=== PATIENT | female | born 1975 | race Caucasian/White ===

== ENCOUNTER 2020-01-19 19:55 | Inpatient (IN) | payer OTHER ==
[~2020-01-19] VITALS: Ht 162.6 cm; Wt 123.8 kg
--- NOTE | ~2020-01-19 | EMS ---
[place] [id number] EMS Patient Care Report Name: KYAW HOU Room #: 213-P ADM IN M.R.#: [id number] Admission: 01/19/20 Attend Phys: Shabbir Jones Discharge: Date of : 71 Report #: [id number] THIS REPORT FOR: //name// Report Transmitted: 01/20/2020 03:11 EMS Care Summary [place], [place]/[facility] Incident [id number] @ 01/19/2020 19:11 Incident Location [id number] [place] [address] Patient KYAW HOU Female, 45 Years 1975 Patient Address [id number] [place] [address] Patient History Kidney/Renal Failure,Type 1 Diabetes, Patient Allergies Penicillin allergy, Patient Medications Topiramate, Hydrochlorothiazide (Hctz), Irbesartan, Humalog, Rosuvastatin, Chief Complaint HYPOGLYCEMIA Disposition Transported No Lights/[place] Reason Convulsions/Seizure Transported To [facility] Narrative scene; ON ARRIVAL PT FOUND SITTING UPRIGHT ON EDGE OF BED AT ADDRESS PROVIDED.[place]risetn [place] ON SCENE REPORTS PT blood sugar is low. IV GIVEN TEN PERCENT GLUCOSE [address] [address] EMS Patient Care Report Name: KYAW HOU Room #: 213-P ADM IN M.R.#: [id number] Admission: 01/19/20 Attend Phys: Shabbir Jones Discharge: Date of : 71 Report #: [id number] ADMINISTEREDPT ASSISTED [place] [facility] STRETCHER. AMBULANCE: VITALS MONITORED THOUGHOUT TRANSPORT. NO CHANGE IN PT TATUS EM RPUT Initial Vitals @19:25P: 64,R: 20,GCS: 12,Glucose: 30,Revised Trauma: 11, @19:29R: 18,GCS: 13,Glucose: 71, @19:43P: 77,R: 22,BP: 133/85,Pain: 4/10,GCS: 15,Revised Trauma: 12, Assessments @19:18MENTAL:Confused,SKIN:No Abnormalities,HEENT:Head/Face: No Abnormalities,Eyes: No Abnormalities,Neck/Airway: No Abnormalities,LUNG SOUNDS:General: No Abnormalities,Left Upper: No Abnormalities,Right Upper: No Abnormalities,Left Lower: No Abnormalities,Right Lower: No Abnormalities,ABDOMEN:General: No Abnormalities,Left Upper: No Abnormalities,Right Upper: No Abnormalities,Left Lower: No Abnormalities,Right Lower: No Abnormalities,PELVIS//GI:No Abnormalities,EXTREMITIES:Left Arm: No Abnormalities,Right Arm: No Abnormalities,Left Leg: No Abnormalities,Right Leg: No Abnormalities,PULSE:NEURO:No Abnormalities,@19:44MENTAL:No Abnormalities,SKIN:No Abnormalities,HEENT:LUNG SOUNDS:General: No Abnormalities,Left Upper: No Abnormalities,Right Upper: No Abnormalities,Left Lower: No Abnormalities,Right Lower: No Abnormalities,ABDOMEN:General: No Abnormalities,Left Upper: No Abnormalities,Right Upper: No Abnormalities,Left Lower: No Abnormalities,Right Lower: No Abnormalities,PELVIS//GI:No Abnormalities,EXTREMITIES:Left Arm: No Abnormalities,Right Arm: No Abnormalities,Left Leg: No Abnormalities,Right Leg: No Abnormalities,PULSE:NEURO:No Abnormalities, Impression Diabetic Hypoglycemia Procedures @19:17ALS AssessmentResponse: UnchangedSucceeded@19:20Saline Lock 500cc (20 ga) Site: Lower Extremity-LeftResponse: ImprovedSucceeded@19:25Dextrose 10% - 150 Milliliters (ml) - Intravenous (IV)Response: Unchanged@19:19StretcherResponse: Improved Timeline 19:08,Call Received 19:08,Dispatch Notified 19:11,Dispatched 19:11,En Route 19:15,On Scene 19:17,At Patient 19:17,ALS Assessment,Response: UnchangedSucceeded, 19:19,Stretcher,Response: [place] [address] EMS Patient Care Report Name: KYAW HOU SARAVANAN Room #: 213-P ADM IN M.R.#: [id number] Admission: 01/19/20 Attend Phys: Shabbir Jones Discharge: Date of : 71 Report #: [id number] 19:20,Saline Lock 500cc 20 ga Site: Lower Extremity-Left,Response: ImprovedSucceeded, 19:25,Dextrose 10% - 150 Milliliters (ml) - Intravenous (IV),Response: Unchanged 19:25,BP: 196/ M,PULSE: 64,RR: 20 R,SPO2: Ox,ETCO2: ,B,PAIN: ,GCS: 12, 19:29,BP: / M,PULSE: ,RR: 18 R,SPO2: Ox,ETCO2: ,B,PAIN: ,GCS: 13, 19:43,BP: 133/85 M,PULSE: 77,RR: 22 R,SPO2: Ox,ETCO2: ,BG: ,PAIN: 4,GCS: 15, 19:43,Depart Scene 19:49,At Destination 20:04,Call Closed Disclaimer v1.1 Copyright 2020 [employer] This EMS Care Summary contains data elements from the applicable legal record (which may be displayed differently). It is designed to provide pertinent information for the following purposes: continuity of care, clinical quality, and state data reporting. The complete legal record is available to ED staff and administrators of the receiving hospital in [employer] Patient Tracker. All data is provided "as is."
[~2020-01-19 19:55] MED LIST: ACETAMINOPHEN650 M5 PO; AMITRIPTYLINE H25 M2 PO; HUMALOG MI100 UNIT/6 SQ; HUMALOG100 UNIT/1 SQ; HYDROCHLOROTHIA25 M2 PO; NAFCILLIN 1GM AD1 G1 IV; NOVOLIN R100 UNIT/1 SUBQ; NOVOLIN R100 UNIT/3 SUBQ; PHENERGAN 25 MG25 M1 PO; POTASSIUM20 PO; REQUIP0.5 MG PO; TYLENOL325 MG PO; ZESTRIL10 MG PO
[2020-01-19 19:59] VITALS: BP 115/77
--- NOTE | 2020-01-19 21:27 | NUR ---
NOTIFIED PHYSICIAN OF BG=48
[2020-01-19 21:42] LABS: CALCIUM 6.1 mg/dL (8.5-10.1)
[2020-01-19] MEDS ORDERED: TRESIBA100 UNIT/1 SUBQ (21:42)
[2020-01-19] MEDS ORDERED: HYDROCHLOROTHIA25 M2 PO (21:43)
[2020-01-19] MEDS ORDERED: LIPITOR10 MG PO (21:43)
[2020-01-19] MEDS ORDERED: TOPAMAX100 MG PO (21:44)
[2020-01-19] MEDS ORDERED: MAGNESIUM250 M1 PO (21:45)
[2020-01-19] MEDS ORDERED: OZEMPIC0.25 MG/0. SUBQ (21:46)
[2020-01-19 21:50] LABS: POTASSIUM 2.5 mmol/L (3.5-5.1)
[2020-01-19 22:12] LABS: HEMOGLOBIN 10.2 gm/dL (12.0-15.0); MCH 28.6 pg (26.0-34.0); MCHC 34.1 g/dL (28.0-37.0); RBC 3.57 mil/uL (4.20-5.00); RDW 14.7 % (10.5-14.5); WBC 12.7 thou/uL (4.0-11.0)
[2020-01-19 22:28] LABS: ALBUMIN 2.4 g/dL (3.4-5.0); MAGNESIUM 1.8 mg/dL (1.8-2.4); PHOSPHORUS 1.7 mg/dL (2.5-4.9)
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
[2020-01-19 23:32] VITALS: BP 102/65
[2020-01-19 23:41] VITALS: BP 117/87
[2020-01-20 00:30] VITALS: BP 113/66
[2020-01-20] MEDS ORDERED: ROSUVASTATIN CAL5 MG PO (01:32)
[2020-01-20] MEDS ORDERED: IRBESARTAN300 MG PO (01:35)
[2020-01-20] MEDS ORDERED: DESYREL150 MG PO (02:11)
[2020-01-20] MEDS ORDERED: BACLOFEN 10MG T10 MG PO (02:13)
[2020-01-20] MEDS ORDERED: D3-501250 MCG PO (02:14)
[2020-01-20] MEDS ORDERED: HUMALOG100 UNIT/1 SUBQ (02:42)
[2020-01-20 04:25] VITALS: BP 130/65
[2020-01-20 05:07] LABS: HEMATOCRIT 30.7 % (37.0-47.0); HEMOGLOBIN 10.4 gm/dL (12.0-15.0); MCH 28.8 pg (26.0-34.0); MCHC 33.9 g/dL (28.0-37.0); MCV 84.9 fL (80.0-100.0); RBC 3.62 mil/uL (4.20-5.00); RDW 14.7 % (10.5-14.5); WBC 10.2 thou/uL (4.0-11.0)
[2020-01-20 05:16] LABS: CREATININE 1.3 mg/dL (0.6-1.0); TOTAL BILIRUBIN 0.2 mg/dL (0.2-1.0); TOTAL PROTEIN 6.3 g/dL (6.4-8.2)
[2020-01-20 05:18] LABS: MAGNESIUM 2.5 mg/dL (1.8-2.4); PHOSPHORUS 3.7 mg/dL (2.5-4.9)
[2020-01-20 05:30] LABS: CALCIUM 8.1 mg/dL (8.5-10.1); POTASSIUM 3.8 mmol/L (3.5-5.1)
--- NOTE | 2020-01-20 06:23 | NUR ---
PT ADMITTED TO THE UNIT AT MIDNIGHT, PT IS AWAKE, ALERT AND ORIENTEDX4, MAKES NEEDS KNOWN, SR ON THE MONITOR, ASSESSMENTS CHARTED, BS WAS 281 UPON ARRIVAL TO THE FLOOR, PT BS HAS BEEN STABLE, MECHANICAL MANAGER NOTIFIED, STARTED ON A LOW DOSE SLIDING SCALE, MEDICATIONS ADMINISTERED ORDERED, C/O HEADACHE THIS MORNING MEDICATED WITH TYL PRN, RESTING IN BED AT THIS TIME, NO DISTRESS NOTED, WILL PASS ON REPORT
[2020-01-20 08:00] VITALS: BP 112/72
[2020-01-20 10:28] LABS: URINE BILIRUBIN NEGATIVE (Negative); URINE BLOOD NEGATIVE (Negative); URINE CLARITY CLEAR; URINE COLOR YELLOW; URINE GLUCOSE-RANDOM* 1+ (Negative); URINE KETONES NEGATIVE (Negative); URINE LEUKOCYTES-REFLEX NEGATIVE (Negative); URINE NITRITE-REFLEX NEGATIVE (Negative); URINE PROTEIN (DIPSTICK) NEGATIVE (Negative); URINE UROBILINOGEN 0.2 E.U./dl (0.2-1.0)
[2020-01-20 12:00] VITALS: BP 119/68
[2020-01-20 16:00] VITALS: BP 127/77
--- NOTE | 2020-01-20 17:42 | NUR ---
ASSUMED CARE 0700. ALERT X4, FROM HOME. DENIES PAIN, DENIES SOB, BLOOD SUGARS CONTROLED. PT VOICED SHE HAS HAD 2 EPISODES OF VERY LOW BS PRIOR TO THIS ADMISSION, NOTIFIED AGA LOVE. POOR INTAKE FOR BREAKFAST AND LUNCH. DTR BROUGHT IN FOOD FROM HOME FOR DINNER. UP AB JOSEFINA IN ROOM, PERSONAL ITEMS IN REACH. CALLS FOR ASSISTANCE. .
[2020-01-20 20:30] VITALS: BP 119/74
[2020-01-21 04:45] VITALS: BP 142/82
--- NOTE | 2020-01-21 05:18 | NUR ---
ASSUMED PT CARE AT 1900. PT IS ALERT AND ORIENTED. NO SIGN OF DISTRESS NOTED IN PT. PT IS STABLE AND LAYING IN BED. DENIES ANY PAIN, VITAL SIGNS STABLE. PT IS AMBULATORY. CALL LIGHT WITHIN REACH. ASSESSMENT COMPLETED AND DOCUMENTED. SCHEDULED MEDS ADMINISTERED TO PT. PT IS STABLE THROUGH THE NIGHT. CONTINUE TO MONITOR PT. NO FURTHER NEEDS AT THIS TIME
[2020-01-21 08:23] VITALS: BP 138/93
--- NOTE | 2020-01-21 10:43 | NUR ---
ASSUMED PT CARE AT 0700, PT ASSESSED, VSS, REVIEWED POC, PT VERBALIZED UNDERSTANDING, SEEMS SOMEWHAT DEPRESSED, WANTS TO SHOWER, FRONT DESK AUXILIARY SETTING HER UP NOW FOR SHOWER, JENNIFER D/C'D IVF, WILL MONITOR
[2020-01-21] MEDS ORDERED: TRESIBA100 UNIT/1 SUBQ (10:53)
[2020-01-21] MEDS ORDERED: HUMALOG100 UNIT/1 SUBQ ×2 (10:53→12:15)
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
[2020-01-21 12:01] VITALS: BP 138/93
--- NOTE | 2020-01-21 13:11 | NUR ---
REVIEWED DC INSTRUCTIONS WITH PT AND HER SON VIA PHONE, THEY BOTH VERBALIZED UNDERSTANDING, LH IV REMOVED, TELE REMOVED, CM CALLED AND SPOKE WITH PT ABOUT FINANCES, SOMEONE WILL CALL PT ON THURSDAY TO FOLLOW-UP. PT LEFT WITH SON AND TOOK ALL BELONGINGS.
== END 2020-01-21 13:05 | disposition home or self-care (01) | DRG 638 ==
LOC: ER 19:55 → EROBS 22:46 → 2N 23:58
PROVIDERS: Emergency Medicine; Nurse Practitioner Family; ADMIT Hospitalist; ATTEND Hospitalist
DX: E10.649 Type 1 diabetes mellitus with hypoglycemia without coma (principal); Z68.42 Body mass index [BMI] 45.0-49.9, adult; E78.00 Pure hypercholesterolemia, unspecified; E83.51 Hypocalcemia; E87.6 Hypokalemia; E83.39 Other disorders of phosphorus metabolism; G25.81 Restless legs syndrome; E78.5 Hyperlipidemia, unspecified; Z88.8 Allergy status to other drugs, medicaments and biological substances; E10.319 Type 1 diabetes mellitus with unspecified diabetic retinopathy without macular edema; D64.9 Anemia, unspecified; E66.01 Morbid (severe) obesity due to excess calories; E10.40 Type 1 diabetes mellitus with diabetic neuropathy, unspecified; N18.9 Chronic kidney disease, unspecified; E10.22 Type 1 diabetes mellitus with diabetic chronic kidney disease; Z87.891 Personal history of nicotine dependence; Z79.4 Long term (current) use of insulin
CPT/HCPCS: 10081

== ENCOUNTER 2020-05-24 12:09 | Emergency (ER) | payer OTHER ==
[~2020-05-24] VITALS: Ht 165.1 cm; Wt 122.5 kg
[~2020-05-24 12:09] MED LIST changes: +BACLOFEN 10MG T10 MG PO; +D3-501250 MCG PO; +DESYREL150 MG PO; +HUMALOG100 UNIT/1 SUBQ; +IRBESARTAN300 MG PO; +LIPITOR10 MG PO; +MAGNESIUM250 M1 PO; +OZEMPIC0.25 MG/0. SUBQ; +ROSUVASTATIN CAL5 MG PO; +TOPAMAX100 MG PO; +TRESIBA100 UNIT/1 SUBQ
[2020-05-24] MEDS ORDERED: LEVEMIR FL100 UNIT/2 SUBQ (12:22)
[2020-05-24 13:32] LABS: HEMATOCRIT 37.7 % (37.0-47.0); HEMOGLOBIN 12.3 gm/dL (12.0-15.0); MCH 27.1 pg (26.0-34.0); MCHC 32.7 g/dL (28.0-37.0); MCV 82.9 fL (80.0-100.0); RBC 4.55 mil/uL (4.20-5.00); RDW 16.4 % (10.5-14.5); WBC 7.6 thou/uL (4.0-11.0)
[2020-05-24 13:40] LABS: CALCIUM 8.8 mg/dL (8.5-10.1); CREATININE 1.7 mg/dL (0.6-1.0); POTASSIUM 3.8 mmol/L (3.5-5.1)
[2020-05-24] MEDS ORDERED: PROMETH-CODEIN 65 ML PO (14:14)
[2020-05-24] MEDS ORDERED: PROAIR HFA8.5 GM INH (14:14)
[2020-05-24 14:26] VITALS: BP 123/85
== END 2020-05-24 14:26 | disposition home or self-care (01) ==
LOC: ER 12:09
PROVIDERS: Physician Assistant
DX: U07.1 COVID-19 (principal); E11.65 Type 2 diabetes mellitus with hyperglycemia; E78.00 Pure hypercholesterolemia, unspecified; Z79.4 Long term (current) use of insulin; Z79.899 Other long term (current) drug therapy; Z88.8 Allergy status to other drugs, medicaments and biological substances

== ENCOUNTER 2020-05-25 13:19 | Inpatient (IN) | payer MEDICAID ==
[~2020-05-25] VITALS: Ht 165.1 cm; Wt 144.7 kg
--- NOTE | ~2020-05-25 | HC ---
[facility] [place] [address] CONSULTATION Name: HARRIETT HOU Room #: 236-P ADM IN M.R.#: [id number] Admission: 05/25/20 Attend Phys: Dl Barrera MD Discharge: Date of : 71 Report #: [id number] THIS REPORT FOR: cc: Harriett Larkin MD, Teresa MD Al-Absi,Sacha Valladares MD ~ REASON FOR CONSULTATION: Acute kidney injury, metabolic acidosis. REASON FOR PRESENTATION: Shortness of breath, positive for COVID-19. HISTORY OF PRESENT ILLNESS: This is obtained from the medical chart. I am unable to obtain any information from the patient. She was in the hospital on 05/24. Her mom was diagnosed to have COVID-19 and the patient had mild cough. She tested COVID-19 or she had a sample tested for COVID-19 and was sent home. The patient represented to the Emergency Room after 24-hours with worsening pulmonary status and was intubated. She was found to have a severely elevated blood sugar. On arrival, the patient was found to have severe metabolic acidosis with a pH of 6.7, initial blood glucose level were read as being more than 500. Chemistry from yesterday revealed that her sugar was actually 1218. The patient was intubated in the Emergency Room and admitted to the ICU. I was consulted to manage her metabolic derangements. Of notice is the fact that the patient had some labs done in 01/2020 and her creatinine at that time was 1.3. The patient's creatinine yesterday was 1.7 and had risen up to 3.7. She continues to make appropriate amount of urine. PAST MEDICAL HISTORY: 1. Diabetes mellitus. 2. Solitary kidney status, was told that she has one bad kidney. 3. Recurrent urinary tract infections. 4. Anemia. MEDICATIONS: 1. Topamax. 2. Irbesartan. 3. Hydrochlorothiazide. 4. Insulin. REVIEW OF SYSTEMS: Unobtainable given the patient's current mental status. SOCIAL HISTORY: Unobtainable given the patient's current mental status. FAMILY HISTORY: Unobtainable given the patient's current mental status. ALLERGIES: LISTED NITROFURANTOIN AND SIMVASTATIN. [address] [address] CONSULTATION Name: HARRIETT HOU SARAVANAN Room #: 236-P [facility] IN M.R.#: [id number] Admission: 05/25/20 Attend Phys: Dl Barrera MD Discharge: Date of : 71 Report #: [id number] PHYSICAL EXAMINATION: GENERAL: She is intubated, currently maintained on IV fluid and insulin. VITAL SIGNS: Blood pressure is 100/52, temperature is 37.2, pulse rate is 111. HEAD AND NECK: ET tube in place. CHEST: Decreased air entry bilaterally. CARDIOVASCULAR: No rub detected. ABDOMEN: Soft. EXTREMITIES: Lower extremities, no edema. LABORATORY DATA: From today revealed hemoglobin of 9.9. Chemistry from today is pending. Most recent chemistry from yesterday revealed a sodium of 128, potassium of 6.8, chloride of 89, carbon dioxide of 6, BUN 53, blood glucose of 1263, phosphorus of 12, calcium of 8. ASSESSMENT, IMPRESSION AND PLAN: 1. Acute kidney injury. 2. COVID-19 positive. 3. Severe metabolic acidosis. 4. Hyperkalemia. 5. Hyperphosphatemia. 6. Currently, the patient is maintained on insulin drip. Main stay of treatment for her diabetic ketoacidosis is IV fluid and she is currently maintained on high rate IV fluid. 7. Continue to monitor blood sugar, electrolytes, she is making appropriate amount of urine and her acidosis has improved significantly. 8. I will await for the next set of labs to decide about further adjustment of her IV fluid and electrolyte issues. She is running into hyperkalemia because of her diabetic ketoacidosis and this should improve with improvement of her blood sugar. Source of hyperphosphatemia will need to be investigated. 9. We will continue to follow during her hospital stay, primary team is addressing her ongoing respiratory failure and COVID-19 status. By: [id number] Sacha Kaye MD /nt
[~2020-05-25 13:19] MED LIST changes: +LEVEMIR FL100 UNIT/2 SUBQ; +PROAIR HFA8.5 GM INH; +PROMETH-CODEIN 65 ML PO
[2020-05-25 13:25] VITALS: BP 108/30
[2020-05-25 14:33] LABS: HEMATOCRIT 43.5 % (37.0-47.0); HEMOGLOBIN 11.8 gm/dL (12.0-15.0); MCH 26.9 pg (26.0-34.0); MCHC 27.1 g/dL (28.0-37.0); RBC 4.37 mil/uL (4.20-5.00); WBC 10.7 thou/uL (4.0-11.0)
[2020-05-25 14:34] LABS: MCV 99.5 fL (80.0-100.0)
[2020-05-25 14:35] LABS: PLATELET COUNT 354 thou/uL (150-400)
[2020-05-25 14:48] LABS: ALBUMIN 3.6 g/dL (3.4-5.0); CALCIUM 8.5 mg/dL (8.5-10.1); DIRECT BILIRUBIN 0.1 mg/dL (<0.1-0.2); TOTAL BILIRUBIN 0.3 mg/dL (0.2-1.0); TOTAL PROTEIN 8.1 g/dL (6.4-8.2)
[2020-05-25 14:50] LABS: URINE BLOOD NEGATIVE (Negative); URINE CLARITY CLEAR; URINE COLOR YELLOW; URINE GLUCOSE-RANDOM* 3+ (Negative); URINE KETONES TRACE (Negative); URINE LEUKOCYTES-REFLEX NEGATIVE (Negative); URINE NITRITE-REFLEX NEGATIVE (Negative); URINE PROTEIN (DIPSTICK) NEGATIVE (Negative); URINE SPECIFIC GRAVITY >= 1.030 (1.005-1.035); URINE UROBILINOGEN 0.2 E.U./dl (0.2-1.0)
[2020-05-25 14:52] LABS: CREATININE 3.7 mg/dL (0.6-1.0)
[2020-05-25 14:58] LABS: POTASSIUM 6.7 mmol/L (3.5-5.1)
[2020-05-25 15:01] LABS: AMP/METHAMP Negative (Negative); BARBITURATES Negative (Negative); BENZODIAZEPINES Negative (Negative); COCAINE Negative (Negative); METHADONE Negative (Negative); OPIATES POSITIVE (Negative); PCP Negative (Negative)
[2020-05-25 15:01] LABS: ICTOTEST (BILI CONFIRMATORY) Negative (Negative); URINE BILIRUBIN NEGATIVE (Negative)
[2020-05-25 15:07] LABS: ABSOLUTE NEUTROPHILS 8.7 thou/uL (1.4-8.2); ANISOCYTOSIS 1+
--- NOTE | 2020-05-25 15:40 | NUR ---
PT ARRIVED TO ROOM VIA CART FROM ED. PT HAS ETT IN PLACE @ 23T VENT SETTING ARE TV 500 RATE 30 PEEP 5 70% FIO2. PT ON 16MCG/MIN LEVOPHED GTT WITH BP 102/54 AND PROPFOL GTT INFUSING @ 16 MCG/KG/MIN. PT HAS + PUPIL REFLEX. NO COUGH OR GAG REFLEX. CENTRAL LINE TO RIGHT SUBCLAV WITH DRESSING CLEAN DRY AND INTACT.
--- NOTE | 2020-05-25 15:54 | NUR ---
1536 40MG ETOMIDATE IVP RAC 1537 100MG ROCURONIUM IVP RAC 1539 ET TUBE 7.0 PLACED, 24 @ TEETH
[2020-05-25 16:08] LABS: BE(vivo) -28.4 mmol/L (-2 to +3); PCO2 41.3 mmHg (35.0-45.0); PO2 172.8 mmHg (80.0-100.0); sO2 97.2 % (92.0-98.0)
[2020-05-25 16:09] LABS: pH 6.778 (7.360-7.450)
[2020-05-25 17:15] LABS: ALBUMIN 3.6 g/dL (3.4-5.0); CALCIUM 8.3 mg/dL (8.5-10.1); CREATININE 3.7 mg/dL (0.6-1.0); MAGNESIUM 2.8 mg/dL (1.8-2.4)
[2020-05-25 17:37] LABS: POTASSIUM 6.8 mmol/L (3.5-5.1)
--- NOTE | 2020-05-25 17:58 | NUR ---
PT REMAINS INTUBATED AND VENTILATED. NO VENT CHANGES. WEANING NOT DONE TODAY. TENTATIVELY SCHEDULED FOR SURGERY ON THURSDAY. VS REMAIN STABLE, AFEBRILE THROUGHOUT THE DAY. BM X 2 TODAY. URINE OUTPUT ADEQUATE. PT'S SIGNIFICANT OTHER VISITED TODAY. WITH DECREASED SEDATION, PT WAKES UP AND APPEARS TO FOLLOW COMMANDS TO "BLINK EYES" OR "OPEN YOUR MOUTH". PT VERY WEAK AND NOT RESTRAINED AT THIS TIME.
[2020-05-25 20:45] LABS: BE(vivo) -20.3 mmol/L (-2 to +3); HCO3 8.3 mmol/L (22.0-26.0); PCO2 28.7 mmHg (35.0-45.0); PO2 142.5 mmHg (80.0-100.0); sO2 97.9 % (92.0-98.0)
[2020-05-25 22:04] LABS: APTT 28.7 Seconds (24.5-32.8); PROTIME 10.5 Seconds (9.3-11.4)
--- NOTE | 2020-05-25 22:49 | NUR ---
VAT CONSULTED FOR A CL IN THE ER. LINE PLACED- PLEASE SEE NI FOR DETAILS
[2020-05-26] VITALS (63 sets, daily range): BP systolic 84–147; BP diastolic 27–79
--- NOTE | 2020-05-26 00:32 | NUR ---
This RN to bedside at 1900. Patients blood sugars still too high read on blood sugar machine. This RN called Bella at 2039 regarding patients status and critical ABG results. Orders to redraw ABG in 2 hours. This RN also called DELMI Ravi around 1999 to report critically high glucose, no new orders. This RN also gagnon DELMI Ravi to report critical troponin at 0015. DELMI Ravi rounded at 0030 to discuss patients status. Orders to start patient on versed gtt, as patient is not sedated maxed out on propofol. Also discussed patients status and labs. Okay to over ride insulin gtt's max recommended dose if needed. Will continue to monitor.
[2020-05-26 02:32] LABS: BE(vivo) -10.6 mmol/L (-2 to +3); PCO2 32.2 mmHg (35.0-45.0); PO2 147.6 mmHg (80.0-100.0); sO2 98.7 % (92.0-98.0)
[2020-05-26 02:33] LABS: pH 7.286 (7.360-7.450)
[2020-05-26 04:23] LABS: MAGNESIUM 1.9 mg/dL (1.8-2.4)
[2020-05-26 04:32] LABS: TROPONIN-I 3.61 ng/mL (<0.06)
[2020-05-26 04:49] LABS: HEMATOCRIT 30.3 % (37.0-47.0); HEMOGLOBIN 9.9 gm/dL (12.0-15.0); MCH 27.1 pg (26.0-34.0); MCHC 32.6 g/dL (28.0-37.0); RBC 3.64 mil/uL (4.20-5.00); RDW 16.4 % (10.5-14.5); WBC 10.1 thou/uL (4.0-11.0)
[2020-05-26 05:00] LABS: MCV 83.3 fL (80.0-100.0)
[2020-05-26 05:41] LABS: BE(vivo) -9.8 mmol/L (-2 to +3); HCO3 15.3 mmol/L (22.0-26.0); PCO2 31.1 mmHg (35.0-45.0); PO2 105.4 mmHg (80.0-100.0); sO2 97.5 % (92.0-98.0)
[2020-05-26 05:42] LABS: pH 7.311 (7.360-7.450)
--- NOTE | 2020-05-26 05:48 | NUR ---
This RN spoke to Macarena,daughter regarding patient status. Updated on plan of care and covid results. Daughter appreciative and understanding of visiting policy.
[2020-05-26 06:15] LABS: CALCIUM 7.1 mg/dL (8.5-10.1); CREATININE 3.6 mg/dL (0.6-1.0)
[2020-05-26 06:19] LABS: POTASSIUM 3.1 mmol/L (3.5-5.1)
--- NOTE | 2020-05-26 06:39 | NUR ---
Reviewed labs with Dr. Kaye. Per Dr. Kaye, patient to remain on .9 NS and receive 60 mEQ potassium in total. Will continue to monitor.
[2020-05-26 08:13] LABS: CREATININE 3.1 mg/dL (0.6-1.0); POTASSIUM 3.1 mmol/L (3.5-5.1)
--- NOTE | 2020-05-26 09:09 | NUR ---
TALKED WITH GABBIE SOLOMON ON THE PHONE. UPDATE ON PTS CONDITION GIVEN.
[2020-05-26 11:14] LABS: HCO3 16.3 mmol/L (22.0-26.0); PCO2 33.2 mmHg (35.0-45.0); PO2 126.3 mmHg (80.0-100.0); sO2 98.3 % (92.0-98.0)
--- NOTE | 2020-05-26 11:19 | NUR ---
1110: PT BP DOWN TO 80/40'S. CHECK BLOOD GLUCOSE CAME BACK @ 45. INSULIN GTT @ 5 UNITS AN HOUR STOPPED. 50 GM DEXTROSE GIVEN IVP. LEVOPHED GTT UP TO 3. 1115: BP STILL 84/37 LEVOPHED UP TO 5 MCG/MIN 1120: BLOOD GLUCOSE @ 136
--- NOTE | 2020-05-26 11:28 | NUR ---
CALLED ANSWERING SERVICE FOR DR. THOMSON
--- NOTE | 2020-05-26 12:00 | NUR ---
TALKED WITH DR. THOMSON. FLUIDS CHANGED TO NS @ 150 AND D5 .45NS @ 100
--- NOTE | 2020-05-26 12:15 | NUR ---
DR. LEENA GAN. DISCUSSED PTS BLOOD GLUCOSE READINGS. FLUID CHANGE. STATES HE WOULD LIKE TO KEEP THE PT ON INSULIN GTT FOR ANOTHER 24 HOURS. RESTART INSULIN GTT AT LOW RATE WHEN BLOOD GLUCOSE >180 X2 TIMES.
[2020-05-26 13:24] LABS: ALBUMIN 2.6 g/dL (3.4-5.0); CREATININE 2.7 mg/dL (0.6-1.0); TOTAL BILIRUBIN 0.1 mg/dL (0.2-1.0); TOTAL PROTEIN 6.2 g/dL (6.4-8.2)
--- NOTE | 2020-05-26 13:28 | NUR ---
TALKED WITH GABBIE SISTER ON THE PHONE. UPDATED ON PT CONDITION. SHE STATED THAT SHE DID A RAPID TEST TODAY FOR COVID AND HAS TESTED POSITIVE. SO PT, HER MOTHER AND SISTER ARE ALL POSITIVE
[2020-05-26 13:33] LABS: POTASSIUM 4.3 mmol/L (3.5-5.1)
[2020-05-26 14:12] LABS: CALCIUM 6.9 mg/dL (8.5-10.1); CREATININE 2.7 mg/dL (0.6-1.0); PHOSPHORUS 3.5 mg/dL (2.5-4.9)
--- NOTE | 2020-05-26 15:48 | NUR ---
TALKED WITH DR. STERN REGUARDING BLOOD GLUCOSE AND RESTARING INSULIN GTT. HE WOULD LIKE NURSING STAFF TITRATE TO KEEP BLOOD GLUCOSE BETWEEN 140-180
[2020-05-26 16:37] LABS: CALCIUM 6.7 mg/dL (8.5-10.1); CREATININE 2.7 mg/dL (0.6-1.0); POTASSIUM 4.2 mmol/L (3.5-5.1)
[2020-05-26 16:43] LABS: ALBUMIN 2.5 g/dL (3.4-5.0); MAGNESIUM 1.8 mg/dL (1.8-2.4); PHOSPHORUS 3.4 mg/dL (2.5-4.9); TOTAL BILIRUBIN 0.2 mg/dL (0.2-1.0); TOTAL PROTEIN 5.9 g/dL (6.4-8.2)
--- NOTE | 2020-05-26 17:00 | NUR ---
TALKED WITH DAUGHTER ANEL ON THE PHONE. UPDATES GIVEN ON PTS CONDITION. QUESTIONS ANSWERED.
--- NOTE | 2020-05-26 18:24 | NUR ---
PT PROGRESSED A LITTLE THOUGHOUT THE DAY. BLOOD GLUCOSE DOWN SIGNIFICANTLY. INSULIN GTT INFUSING. LEVOPHED GTT WEANED OFF DURING SHIFT. PT IS MOVING HER LEGS AROUND IN THE BED. SEDATION GTTS DOWN TO 40 MCG/KG/MIN OF PROPOFOL AND 3 MG/HR OF VERSED. TALKED WITH DAUGHTER AND SISTER ON THE PHONE THROUGHOUT THE DAY. UPDATED ON PTS POC.
[2020-05-26 21:20] LABS: ALBUMIN 2.5 g/dL (3.4-5.0); CALCIUM 6.9 mg/dL (8.5-10.1); CREATININE 2.3 mg/dL (0.6-1.0); MAGNESIUM 1.7 mg/dL (1.8-2.4); POTASSIUM 3.9 mmol/L (3.5-5.1); TOTAL BILIRUBIN 0.2 mg/dL (0.2-1.0)
--- NOTE | 2020-05-26 22:23 | NUR ---
PT TACHYPENIC AND TACHYCARDIA. LABORED BREATHING ON VENT. SPO2 >92% ON 40% FIO2. INCREASED VERSED AND PROPOFOL DRIPS FOR VENT MANAGEMENT AND SEDATION. SUCTIONED VERY THICK GREEN/BEIGE SECRETIONS FROM ETT. NOTIFIED RT. FEVER PRESENT. NOTIFIED DR ENGEL. ORDERS RECEIVED TO GIVE TYLENOL AND CURRENT SUPPLEMENT SEDATION WITH FENTANYL DRIP. WILL MONITOR CLOSELY.
[2020-05-27] VITALS (78 sets, daily range): BP systolic 75–138; BP diastolic 36–66
[2020-05-27 00:58] LABS: ALBUMIN 2.3 g/dL (3.4-5.0); CREATININE 2.2 mg/dL (0.6-1.0); MAGNESIUM 1.7 mg/dL (1.8-2.4); PHOSPHORUS 1.1 mg/dL (2.5-4.9); POTASSIUM 3.4 mmol/L (3.5-5.1)
[2020-05-27 01:10] LABS: CALCIUM 6.9 mg/dL (8.5-10.1)
--- NOTE | 2020-05-27 01:38 | NUR ---
RR AND HR IMPROVED AFTER STARTING FENTANYL DRIP. TYLENOL GIVEN FOR FEVER. TEMP STILL ELEVATED; NOW [address] COOLING BLANKET ON PT. LEVOPHED DRIP STARTED BP HAS DECREASED WITH INCREASE IN SEDATION. NOT PROGRESSING TOWARD POC GOALS. WILL CONTINUE TO MONITOR CLOSELY.
--- NOTE | 2020-05-27 05:59 | NUR ---
AROUND 0300, PT HAD LABORED BREATHING AGAIN. SUCTIONED LARGE AMOUNT THICK SECRETIONS FROM ETT. STILL FEBRILE. COOLING BLANKET IN PLACE. LEVOPHED DRIP INCREASED TO KEEP MAP>60. UPDATED DR ENGEL. 0330 - FIO2 INCREASED FROM 40 TO 100% O2 SATS DROPPED INTO THE 80S AND PT CONTINUED TO HAVE LABORED BREATHING ON THE VENT. RT UPDATED. SEDATION TITRATED UP FOR VENT MANAGEMENT. 0530 - PT'S LUNGS SOUNDED COARSE WITH CRACKLES. THICK, BLOOD-TINGED SPUTUM SUCTIONED FROM ETT. NOTIFIED DR ENGEL OF INCREASED O2 NEEDS AND CONCERN FOR FLUID OVERLOAD. ORDERS RECEIVED. 40MG LASIX GIVEN ONE TIME ORDERED. 0600 - HR <100. RR LOW 30S. BREATHING EVEN AND UNLABORED. GOOD URINE OUTPUT FROM KELLY. FEVER RESOLVED. SPOKE WITH PT'S DTR CITLALY THIS MORNING. UPDATED PROVIDED. QUESTIONS ANSWERED. PT HAS REMAINED ON INSULIN DRIP ALL SHIFT; TITRATED PER DKA PROTOCOL. BG <200 MOST OF THE SHIFT. NOT PROGRESSING TOWARD POC GOALS.
[2020-05-27 06:04] LABS: ABSOLUTE NEUTROPHILS 10.1 thou/uL (1.4-8.2); BASOPHILS 0.1 % (0.0-2.0); HEMATOCRIT 31.2 % (37.0-47.0); HEMOGLOBIN 9.9 gm/dL (12.0-15.0); LYMPHOCYTES 6.3 % (24.0-44.0); MCH 26.4 pg (26.0-34.0); MCHC 31.6 g/dL (28.0-37.0); MCV 83.7 fL (80.0-100.0); MONOCYTES 2.2 % (1.0-8.0); PLATELET COUNT 165 thou/uL (150-400); POLYS 91.4 % (36.0-66.0); RBC 3.73 mil/uL (4.20-5.00); RDW 17.3 % (10.5-14.5)
[2020-05-27 06:13] LABS: CREATININE 1.8 mg/dL (0.6-1.0)
[2020-05-27 06:18] LABS: POTASSIUM 4.5 mmol/L (3.5-5.1)
[2020-05-27 06:19] LABS: ALBUMIN 2.3 g/dL (3.4-5.0); MAGNESIUM 1.7 mg/dL (1.8-2.4); TOTAL BILIRUBIN 0.5 mg/dL (0.2-1.0); TOTAL PROTEIN 5.9 g/dL (6.4-8.2)
[2020-05-27 07:07] LABS: GLYCOHEMOGLOBIN (HGB A1C) 9.5 % (4.8-5.6)
--- NOTE | 2020-05-27 07:45 | HC ---
[facility] [place] [address] CONSULTATION Name: HARRIETT HOU Room #: 236-P ADM IN M.R.#: [id number] Admission: 05/25/20 Attend Phys: Dl Barrera MD Discharge: Date of : 71 Report #: [id number] THIS REPORT FOR: cc: Harriett Larkin MD, Teresa MD Park,Elver Guzman MD ~ DATE OF SERVICE: 05/26/2020 CARDIOLOGY CONSULTATION INDICATION: Positive troponin level. HISTORY OF PRESENT ILLNESS: This is a 45-year-old female with history of diabetes mellitus, noncompliance with recent COVID-19 infection, presenting with acute shortness of breath. Her respiratory status was unstable and she was intubated in the ER. Evaluation revealed elevated glucose levels and diagnosed with diabetic ketoacidosis. We are asked to evaluate for positive troponin level of 3.61. No prior cardiac history. PAST MEDICAL PROBLEMS: Diabetes mellitus, kidney disease, history of noncompliance and recent COVID-19 virus infection. ALLERGIES: SIMVASTATIN AND NITROFURANTOIN. MEDICATIONS: At home include insulin, albuterol, rosuvastatin, irbesartan. SOCIAL HISTORY: No recent history. FAMILY HISTORY: Unable to obtain. REVIEW OF SYSTEMS: Unable to obtain. PHYSICAL EXAMINATION: VITAL SIGNS: Blood pressure is 100/60, heart rate is 90 beats per minute. GENERAL APPEARANCE: The patient is overweight female, intubated and sedated. HEENT: Normocephalic, atraumatic. NECK: No JVD. LUNGS: Diminished breath sounds at the bases. CARDIAC: Distant heart sounds, S1, S2 positive. ABDOMEN: Protuberant, soft, nontender. EXTREMITIES: No cyanosis, no edema. ECG reveals sinus tachycardia, low voltage, right bundle branch block, nonspecific ST segment abnormality. [facility] [address] [place] [address] CONSULTATION Name: HARRIETT HOU SARAVANAN Room #: 236-P [facility] IN ..#: [id number] Admission: 05/25/20 Attend Phys: Dl Barrera MD Discharge: Date of : 71 Report #: [id number] LABORATORY VALUES: Creatinine is 3.1. Troponin is 3.61. ASSESSMENT AND PLAN: 1. Troponin elevation, has risk factors including diabetes mellitus, hypertension, hypercholesterolemia. More likely related to recent COVID infection. We will need a cardiac evaluation once her respiratory status stabilizes. 2. Respiratory failure/COVID infection, presently on vent and sedated. Continue full treatment for COVID infection. Agree with anticoagulation therapy. 3. Hypertension, low blood pressure, on low dose Levophed, wean off if possible. 4. Acute kidney injury, as per Renal. 5. Hypercholesterolemia, statin therapy. 6. Diabetic ketoacidosis, continue on insulin and as per Endocrine. <ELECTRONICALLY SIGNED> By: Elver Hunt MD 05/27/20 0745 0904 [id number] MD sakina Marti
[2020-05-27 09:06] LABS: BE(vivo) -9.3 mmol/L (-2 to +3); PCO2 32.8 mmHg (35.0-45.0); PO2 156.2 mmHg (80.0-100.0); pH 7.306 (7.360-7.450); sO2 98.9 % (92.0-98.0)
--- NOTE | 2020-05-27 09:56 | NUR ---
0800- [facility] CALLED AND SPOKE WITH MARCIA OLIVIA THIS AM ASKING QUESTIONS OF PT'S DIAGNOSIS AND PROGNOSIS. THEY STATED THAT THEY ARE TRYING TO DETERMINE IF THEY NEED TO SEND THE PT'S DAUGHTER HOME FROM THE TO VISIT HER MOTHER. 0955 PT'S SISTER GABBIE CALLED AND SPOKE WITH RN. GABBIE STATED SHE AND THE PT'S MOTHER ARE CURRENTLY BOTH HOME AND POSITIVE WITH COVID-19. GABBIE STATES THAT THE PT HAS TWIN DAUGHTERS, ONE OF WHICH IS IN [place] [employer] [place] IN [place]. SHE STATED THAT THEY ARE TRYING TO GET [facility] TO BRING THE DAUGHTER HOME FROM [place] AND WILL KEEP US UPDATED IF HER LEAVE IS GRANTED. PT UPDATE GIVEN AND QUESTIONS ANSWERED BY RN.
--- NOTE | 2020-05-27 12:53 | HC ---
[facility] [place] [address] CONSULTATION Name: HARRIETT HOU [facility] Room #: 236-P ADM IN M.R.#: [id number] Admission: 05/25/20 Attend Phys: Dl Barrera MD Discharge: Date of : 71 Report #: [id number] THIS REPORT FOR: cc: Harriett Larkin MD, Teresa MD Al-Mubaslat, Ahmad MD ~ DATE OF SERVICE: 05/26/2020 ENDOCRINE CONSULTATION NOTE CONSULTING PHYSICIAN: Dr. Barrera. REASON FOR CONSULTATION: DKA, type 2 diabetes mellitus. HISTORY OF PRESENT ILLNESS: This is a 45-year-old female patient whose medical background was significant for type 2 diabetes mellitus, who presented yesterday with progressive shortness of breath and severe tachypnea. On arrival, the patient was found to be in DKA with severe acidosis at a pH of 6.7. Shortly after arrival, the patient was intubated as she became less responsive and was admitted to the ICU for further care and monitoring. For the time being, I do not have specifics about her diabetes history, but I do note that she is maintained on a combination of Humalog insulin 10 units subcutaneous b.i.d. as well as Tresiba 28 units daily. Again, I am not aware of the specifics of her glycemic pattern prior to this admission. The patient is currently on IV insulin therapy. Also, having reviewed her chart, the patient is hypertensive and is maintained on irbesartan and hydrochlorothiazide, as well as hyperlipidemia and is maintained on Crestor 5 mg daily. REVIEW OF SYSTEMS: CONSTITUTIONAL: Fatigue, tiredness. No reports of fever. HEENT: No reports of sore throat, sinus pain or ear drainage. PULMONARY: Reports of tachypnea, shortness of breath and cough, but not hemoptysis. GASTROINTESTINAL: No reports of nausea, vomiting or abdominal pain. NEUROLOGY: No reports of seizure activity, severe frequent headaches, but reports of a declining mentation and a bit of confusion, otherwise review of systems are noncontributory other than those mentioned in HPI. PAST MEDICAL HISTORY: 1. Type 2 diabetes mellitus. 2. Hypertension. [facility] [address] [place] [address] CONSULTATION Name: HARRIETT HOU Room #: 236-P [facility] IN .R.#: [id number] Admission: 05/25/20 Attend Phys: Dl Barrera MD Discharge: Date of : 71 Report #: [id number] 3. Hyperlipidemia. 4. Osteoarthritis. 5. History of pyelonephritis. 6. Anemia. 7. Restless legs syndrome. OUTPATIENT MEDICATIONS: Humalog insulin 10 units b.i.d. a.c., albuterol q. 4-6 hours p.r.n., Tresiba 28 units daily, topiramate b.i.d., Crestor 40 mg daily, irbesartan 300 mg daily, trazodone 50 mg at bedtime, baclofen 10 mg t.i.d., acetaminophen 650 mg q. 6 hours p.r.n., hydrochlorothiazide 25 mg at bedtime, magnesium 2 tabs b.i.d. ALLERGIES: Reported to NITROFURANTOIN AND SIMVASTATIN. FAMILY HISTORY: Noncontributory. SOCIAL HISTORY: The patient is an ex-smoker. Drinks alcohol seldom. Does not use illicit drugs. PHYSICAL EXAMINATION: GENERAL: A female patient who is not in apparent pain or distress. She is intubated, sedated, and mechanically ventilated. VITAL SIGNS: Blood pressure is 100/52 mmHg, heart rate is 111 beats per minute, respirations 30 per minute, temperature 37.5 degrees Celsius. CONSTITUTIONAL: Lying in bed, intubated, mechanically ventilated, sedated. HEENT: Anicteric sclerae. NECK: Supple, no thyromegaly. CHEST: Noted for diminished air entry bilaterally with coarse breath sounds, scattered rales and rhonchi. HEART: Regular rate and rhythm. ABDOMEN: Soft, lax, distended, but not tense. EXTREMITIES: Lower extremity edema is noted for ankle edema. NEUROLOGIC: Sedated. PSYCHIATRIC: Sedated. LABORATORY DATA: On arrival to the ER, the patient had severely elevated glucose that measured at 1263. Her blood glucose values have been monitored hourly since arrival, as she was maintained on IV insulin and bottomed at 242 two hours ago. The most recent prior to this dictation was 136 mg/dL. Otherwise, sodium 146, started out at 128, potassium 3.1, started out at 6.8, chloride 112, CO2 of 20, anion gap of 14, started out at 33, BUN 53, creatinine 3.1, started out at 3.7, AST 39, lipase 111, total bilirubin 0.3, calcium 7.0, magnesium 1.9, phosphorous 12, alkaline phosphatase 149, ALT 43, total protein 3.1, albumin 3.6, EGFR 16. CPK 38. LDH 214, iron 28. Acetone was more than 2, [facility] [address] [place] [address] CONSULTATION Name: HARRIETT HOU Room #: 236-P [facility] IN M.Ivette.#: [id number] Admission: 05/25/20 Attend Phys: Dl Barrera MD Discharge: Date of : 71 Report #: [id number] CRP 95.7, INR 1.0. White blood count 10.1, hemoglobin 9.9, hematocrit 30.3, platelets 288 and pH on arrival was 6.778, this morning at 7.31, pCO2 on arrival was 32.2, now at 33.1, bicarb started out at 6, now at 16.3. ASSESSMENT AND PLAN: 1. Diabetic ketoacidosis. The patient presents with metabolic and clinical outlook that are consistent with diabetic ketoacidosis. She presented with severe acidity and was appropriately started on IV insulin therapy along with IV fluid resuscitation. Some of her metabolic parameters have corrected rather well including her pH and bicarbonate levels. The patient required IV insulin doses as high as 45 units per hour earlier this morning, but promptly developed hypoglycemia, which prompted the stoppage of IV insulin therapy. I have discussed these events with the nursing staff. I believe that the recorded insulin needs are not safety representative of her true baseline, but rather reflect exaggerated needs due to her current severe illness. That said, I advised to initiate support with dextrose based solutions and then resume IV insulin therapy with the patient as consistently over 180 mg/dL at least twice in a row. I would like her to continue with IV insulin therapy for at least 24 hours to get a better feel for her true insulin needs in a more stable state. In the meantime, IV insulin therapy, and blood glucose monitoring will commence as per the [facility] IV insulin protocol. When the patient demonstrates adequate stability, she will be considered for a transition to subcutaneous insulin therapy. Also, I will obtain a hemoglobin A1c to have a better understanding of her more recent level of control. It would be essential to stay on top of her electrolyte abnormalities, as the patient developed all to commonly found hypokalemia upon the correction of her blood glucose values. 1. Type 2 diabetes mellitus. The patient is documented as having been dependent on basal bolus insulin therapy. Given her sedated and intubated state, she is not available to give a more detailed history of her diabetes mellitus. As noted above, she will be considered for subcutaneous insulin therapy based on her IV insulin needs once she has demonstrated more consistency and instability. The hemoglobin A1c will follow. 2. Hypocalcemia. The patient's calcium level is significantly low including when considered for the current albumin level. Interestingly, she had a documentation of a low ionized calcium in 2008 at 3.8. I will obtain another ionized calcium level for confirmation, as well as PTH and a vitamin D level to investigate potential causes for hypocalcemia. Her magnesium was normal at 1.9. 3. Adrenal insufficiency. The patient had a documentation of a low random cortisol of 5.3 in 2008, which leads me to think that she was suspected to have adrenal insufficiency at that time. Currently, she is certainly more on the hypotensive side and had some electrolyte changes that could be seen in the [address] [place] [address] CONSULTATION Name: HARRIETT HOU Room #: 236-P ADM IN M.R.#: [id number] Admission: 05/25/20 Attend Phys: Dl Barrera MD Discharge: Date of : 71 Report #: [id number] setting of adrenal insufficiency including hypocalcemia. That said, I will obtain a random cortisol level with a low threshold to proceed towards an ACTH stimulation test if she is further suspicious for adrenal insufficiency. 4. Respiratory failure. The patient is currently intubated, mechanically ventilated for airway protection. She is reportedly COVID positive. I certainly appreciate this consultation by Dr. Barrera. <ELECTRONICALLY SIGNED> By: Daniel Gonzalez MD 05/27/20 1253 1300 [id number] Daniel Gonzalez MD /nt
--- NOTE | 2020-05-27 15:35 | NUR ---
AT SHIFT CHANGE PT WAS ON ARTIC SUN WITH PADS FOR COOLING. RECTAL TEMP REACHED 96.5 AND ARTIC SUN WAS TURNED OFF AND PAD REMOVED FROM SKIN. THROUGH OUT SHIFT PT'S TEMP HAS SLOWLY INCREASED. AT 1420 RN OBSERVED PT USING MORE ACCESSORY MUSCLES WITH INCREASED WORK OF BREATHING. PT IS ON VENTILATOR.RESPIRATIONS INCREASED FROM 30 TO 34. TEMP 97.7. RN GAVE TYLENOL PER TUBE AT 1437, SEE MAR. 1512-RN PAGED DR. ENGEL TO GIVE CHANGE IN PT CONDITION UPDATE. AWAITING CALL BACK FROM PHYSICIAN. 1504- DR. QUENTIN CAMPOS, RN NOTICED PT DOES NOT HAVE AN INFECTIOUS DISEASE CONSULT AND SINCE PT IS COVID +, ID CONSULT TO BE REQUESTED. AWAITING CALL BACK FROM PHYSICIAN. 1519- DR. THOMSON PAGEKwan. DR. STERN GAVE TELEPHONE ORDER TO D/C D5 1/2 NS IF OKAY WITH DR. THOMSON. AWAITING PHYSICIAN CALL BACK.
[2020-05-28] VITALS (96 sets, daily range): BP systolic 77–141; BP diastolic 26–70
--- NOTE | 2020-05-28 01:24 | NUR ---
PATIENT WAS ABLED TO BE WEANED DOWN TO 16 OF LEVOPHED. PATIENT HAS GOOD URINE OUTPUT. PATIENT DID HAVE A HIGH BLOOD SUGAR, THIS WAS REPORTED TO CONNELLY AND THE SLIDING SCALE WAS INCREASED. VSS.
[2020-05-28 04:08] LABS: BE(vivo) -7.2 mmol/L (-2 to +3); PCO2 40.7 mmHg (35.0-45.0); PO2 58.6 mmHg (80.0-100.0); sO2 87.4 % (92.0-98.0)
[2020-05-28 04:10] LABS: pH 7.286 (7.360-7.450)
[2020-05-28 04:36] LABS: ALBUMIN 2.1 g/dL (3.4-5.0); CALCIUM 7.3 mg/dL (8.5-10.1); CREATININE 1.5 mg/dL (0.6-1.0); MAGNESIUM 1.6 mg/dL (1.8-2.4); POTASSIUM 3.8 mmol/L (3.5-5.1); TOTAL BILIRUBIN 0.5 mg/dL (0.2-1.0); TOTAL PROTEIN 5.8 g/dL (6.4-8.2)
[2020-05-28 04:40] LABS: ABSOLUTE NEUTROPHILS 14.3 thou/uL (1.4-8.2); BASOPHILS 0.2 % (0.0-2.0); HEMATOCRIT 29.3 % (37.0-47.0); HEMOGLOBIN 9.6 gm/dL (12.0-15.0); LYMPHOCYTES 3.6 % (24.0-44.0); MCH 27.3 pg (26.0-34.0); MCHC 32.7 g/dL (28.0-37.0); MCV 83.5 fL (80.0-100.0); MONOCYTES 0.9 % (1.0-8.0); PLATELET COUNT 142 thou/uL (150-400); POLYS 95.3 % (36.0-66.0)
[2020-05-28 07:06] LABS: CALCIUM IONIZED* 4.3 mg/dL (4.5-5.6)
--- NOTE | 2020-05-28 07:29 | EKG ---
[facility] [place] [address] ELECTROCARDIOGRAM REPORT Name: HARRIETT HOU Room #: 236-P ADM IN M.R.#: [id number] Admission: 05/25/20 Attend Phys: Dl Barrera MD Discharge: Date of : 71 Report #: [id number] THIS REPORT FOR: cc: Harriett Larkin MD, Teresa MD Lundgren,Med Her MD [facility] ~ THIS REPORT FOR: //name// [facility] ED Test Date: 2020-05-25 Test Time: 15:25:31 Pat Name: HARRIETT HOU Department: Room: 236 P Gender: F Clerical Dentist Assistant: RODRICK : 1975 Requested By: Jose Murcia Order Number: [id number] MD: Med Blanchard Measurements Intervals [place] Rate: 107 P: 60 FL: 148 QRS: 139 QRSD: 128 T: 18 QT: 367 QTc: 490 Interpretive Statements Sinus tachycardia RBBB and LPFB Compared to ECG 02/22/2015 22:36:43 Left posterior fascicular block now present Right bundle-branch block now present Electronically Signed On 05-28-2020 7:29:41 DIRECTOR OF INSTRUMENTAL MUSIC by Med Blanchard [email or web address] <ELECTRONICALLY SIGNED> By: Med Blanchard MD, FACC 05/28/20 0729 1525 1525 Med Blanchard MD, FAC /EPI
--- NOTE | 2020-05-28 09:36 | NUR ---
GABBIE SISTER CALLED. UPDATE GIVEN. POC GONE OVER
--- NOTE | 2020-05-28 13:18 | NUR ---
TALKED TO JOHNNIE DAUGHTER ON THE PHONE. UPDATE ON CONDITION. POC REVIEWED.
--- NOTE | 2020-05-28 15:03 | NUR ---
Chart reviewed and case discussed with the care team. Pt admitted from home via the ER in acute resp failure and covid +. Pt is intubated and on levo. Pt's sister Ying and dtr Lois are checking in regularly with nursing. Nursing indicates that the [facility] [place] contacted them yesterday for request of leave for pt's other dtr who is currently stationed in [employer]. The pt's sister Ying and their mother have also tested positive for covid. The pt is pt pay with no insurance. Will have Re[employer] screen for possible medicaid application. Medical records to fax pt's dpoa for hc on file to the unit. Pt is on dose #2 Remdesivir and had conv plasma yesterday. Will follow for support.
--- NOTE | 2020-05-28 18:41 | NUR ---
NO NEW EVENTS THOUGHOUT THE SHIFT. PT CONTINUES TO BE ON HIGH VENTILATOR SUPPORT. PEEP 12 100% FIO2 AT THIS TIME. SATUARTIONS ANYWHERE BETWEEN 86-92% TODAY. AFEBRILE. CONTINUES TO BE SEDATED AND ON LEVOPHED GTT.
[2020-05-29] VITALS (98 sets, daily range): BP systolic 89–180; BP diastolic 40–85
[2020-05-29 05:07] LABS: 25-HYDROXY TOTAL 17.1 ng/mL (30.0-100.0)
[2020-05-29 05:12] LABS: HEMOGLOBIN 9.6 gm/dL (12.0-15.0); MCH 26.8 pg (26.0-34.0); MCV 83.8 fL (80.0-100.0); RBC 3.58 mil/uL (4.20-5.00); RDW 17.7 % (10.5-14.5); WBC 16.6 thou/uL (4.0-11.0)
[2020-05-29 05:27] LABS: CALCIUM 8.1 mg/dL (8.5-10.1); CREATININE 1.7 mg/dL (0.6-1.0); POTASSIUM 3.2 mmol/L (3.5-5.1)
--- NOTE | 2020-05-29 06:46 | NUR ---
PATIENT HAD A FAIRLY GOOD NIGHT LAST NIGHT. PATIENT'S O2 SATS CAME UP TO 93%. PATIENT WAS GIVEN A FULL BED BATH. PATIENT RESTED WELL AND HAD GOOD URINE OUTPUT THROUGH THE NIGHT.
[2020-05-29 07:48] LABS: PHOSPHORUS 2.9 mg/dL (2.5-4.9)
[2020-05-29 12:31] LABS: PCO2 39.9 mmHg (35.0-45.0); pH 7.188 (7.360-7.450)
[2020-05-29 12:32] LABS: BE(vivo) -12.6 mmol/L (-2 to +3); HCO3 14.8 mmol/L (22.0-26.0); PO2 41.9 mmHg (80.0-100.0)
[2020-05-29 12:33] LABS: sO2 66.1 % (92.0-98.0)
--- NOTE | 2020-05-29 16:41 | NUR ---
ASSUMED CARE @ 0700 05/29/20, PT ASSESSMENTS AND VS COMPLETE PER ICU PRT. DR RAMIREZ AT BEDSIDE @ 1200, UPDATE GIVEN PER RN, DR RAMIREZ INFORMED ABOUT LOW UO, ORDERS RECIEVED AND EXECUTED. RN NOTICES THAT UO DID NOT CYBER DEFENSE INCIDENT RESPONDER AFTER INTERVENTION, RN BLADDER SCANS PT, 1047ML RECORDED PER SCANNER. RN IRRIGATES THE KELLY CATHETER AND 1050 ML COME OUT WITHIN 5 MINS OF IRRIGATION. RN NOTICES URINE IS DARK COLORED AND BLOOD TINGED, DR SAAVEDRA AT BEDSIDE @ 1550 AND INFORMED, NO NEW ORDERS RECIEVED AT THIS TIME. 0727: CITLALY CALLED FOR AN UPDATE, CODE VERIFIED AND UPDATE GIVEN. 1604: GABBIE CALLED FOR AN UPDATE, CODE VERFIED AND UPDATE GIVEN.
[2020-05-29 18:59] LABS: MAGNESIUM 2.2 mg/dL (1.8-2.4); POTASSIUM 3.8 mmol/L (3.5-5.1)
--- NOTE | 2020-05-29 22:46 | NUR ---
>>>1900 BEDSIDE REPORT RECEIVED, CARE ASSUMED. >>>2000 ASSESSMENTS DONE DOCUMENMTED PER ICU PROTOCOL. SEDATION VACATION NOT DONE DUE TO PT NOT MEETING CRITERIA, ON 100% FIO2 WITH 02 SATS AT 90%. DAUGHTER AND SISTER CALLED, UPDATED ON PT CONDITION ABOUT TEMPERATURE, BP AND VENT MANAGENEMENT. ALSO INFORMED ABOUT THE IMPROVEMENT IN URINE OUTPUT. WILL CONTINUE TO MONITOR.
[2020-05-30] VITALS (94 sets, daily range): BP systolic 99–142; BP diastolic 41–86
[2020-05-30 04:09] LABS: HEMOGLOBIN 8.6 gm/dL (12.0-15.0); MCH 26.7 pg (26.0-34.0); MCV 83.4 fL (80.0-100.0); RBC 3.23 mil/uL (4.20-5.00); RDW 18.3 % (10.5-14.5); WBC 16.1 thou/uL (4.0-11.0)
[2020-05-30 04:26] LABS: CALCIUM 8.2 mg/dL (8.5-10.1); CREATININE 2.1 mg/dL (0.6-1.0); POTASSIUM 3.6 mmol/L (3.5-5.1)
[2020-05-30 08:13] LABS: ALBUMIN 1.8 g/dL (3.4-5.0); DIRECT BILIRUBIN 0.2 mg/dL (<0.1-0.2); TOTAL BILIRUBIN 0.3 mg/dL (0.2-1.0)
--- NOTE | 2020-05-30 13:09 | NUR ---
TALKED WITH SISTER GABBIE ON THE PHONE. PT UPDATE GIVEN. EVENTS OF THE NIGHT/DAY GONE OVER. SHE STATES THAT MORE OF THE FAMILY HAS NOW TESTED POSITIVE FOR COVID.
--- NOTE | 2020-05-30 18:14 | NUR ---
TALKED WITH DAUGHTER BEAU ON THE PHONE. UPDATES GIVEN.
--- NOTE | 2020-05-30 18:38 | NUR ---
NO NEW EVENTS THOUGHOUT THE DAY. RECTAL TUBE INSERTED DUE TO WATERY STOOLS. PT TOLERATING TUBE FEEDINGS. DOES NOT TOLERATE LYING TO LEFT SIDE, SATURATIONS IN THE 80'S.
[2020-05-31] VITALS (51 sets, daily range): BP systolic 110–156; BP diastolic 68–100
--- NOTE | 2020-05-31 00:53 | NUR ---
>>>1900 BEDSIDE SHIFT REPORT RECEIVED, CARE ASSUMED. >>>2000 ASSESSEMNTS DONE DOCUMENTED. PT VENT SEETINGS CHANGED TO PRESSURE CONTROL WITH RATE OF 30, PEEP-14 AND FIO2 100%. PT IS TOLERATING WITHOUT COMPLICATIONS. 02 SATS AT 93%. NO SEDATION VACATION DONE DUE TO PT NOT MEETING CRITERIA, FIO2 AT 100%. DR GOFF ROUNDING ON PT, SEE NEW ORDERS. WILL CONTINUE TO MONITOR.
[2020-05-31 05:01] LABS: BE(vivo) -8.9 mmol/L (-2 to +3); HCO3 18.8 mmol/L (22.0-26.0); PCO2 48.6 mmHg (35.0-45.0); PO2 78.9 mmHg (80.0-100.0); sO2 92.9 % (92.0-98.0)
[2020-05-31 05:02] LABS: pH 7.205 (7.360-7.450)
[2020-05-31 06:02] LABS: HEMATOCRIT 29.6 % (37.0-47.0); HEMOGLOBIN 9.2 gm/dL (12.0-15.0); MCH 26.4 pg (26.0-34.0); MCHC 31.1 g/dL (28.0-37.0); MCV 84.8 fL (80.0-100.0); RBC 3.49 mil/uL (4.20-5.00); RDW 18.6 % (10.5-14.5); WBC 13.1 thou/uL (4.0-11.0)
[2020-05-31 06:17] LABS: URINE BILIRUBIN NEGATIVE (Negative); URINE BLOOD 3+ (Negative); URINE CLARITY CLOUDY; URINE COLOR YELLOW; URINE GLUCOSE-RANDOM* NEGATIVE (Negative); URINE KETONES NEGATIVE (Negative); URINE LEUKOCYTES-REFLEX 1+ (Negative); URINE NITRITE-REFLEX NEGATIVE (Negative); URINE PROTEIN (DIPSTICK) 1+ (Negative); URINE SPECIFIC GRAVITY 1.015 (1.005-1.035); URINE UROBILINOGEN 0.2 E.U./dl (0.2-1.0)
[2020-05-31 06:27] LABS: SQUAMOUS 0-3 Few /LPF (0-3)
[2020-05-31 06:28] LABS: FINE GRANULAR CASTS 0-3 Few /LPF (None Seen)
[2020-05-31 06:29] LABS: BACTERIA-REFLEX 1-9 Few /HPF (None Seen); CRYSTALS None Seen /LPF (None Seen); URINE RBC 3-10 Few /HPF (0-2); URINE WBC-REFLEX 0-5 Rare /HPF (0-5); YEAST-REFLEX Present (None Seen)
[2020-05-31 06:32] LABS: ALBUMIN 1.6 g/dL (3.4-5.0); DIRECT BILIRUBIN 0.1 mg/dL (<0.1-0.2); TOTAL BILIRUBIN 0.2 mg/dL (0.2-1.0); TOTAL PROTEIN 6.2 g/dL (6.4-8.2)
[2020-05-31 06:42] LABS: PROTIME 9.2 Seconds (9.3-11.4)
[2020-05-31 06:54] LABS: ALBUMIN 1.6 g/dL (3.4-5.0); POTASSIUM 3.8 mmol/L (3.5-5.1)
[2020-05-31 07:57] LABS: FIBRINOGEN 557.7 mg/dL (210-360)
--- NOTE | 2020-05-31 18:48 | NUR ---
PATIENT ON THE VENT, SEDATED. UNABLE TO WEAN, PATIENT DESATURATES EASILY AND DOESN'T TOLERATED TURNS. SISTER UPDATED BY DR. BURCH EARLIER TODAY AND THEN CALLED LATER THIS EVENING AND I UPDATED HER. PATIENT'S DAUGHTER ALSO CALLED EARLIER AND I UPDATED HER. WILL CONTINUE WITH POC.
[2020-06-01] VITALS (29 sets, daily range): BP systolic 68–138; BP diastolic 41–89
[2020-06-01 05:25] LABS: HEMOGLOBIN 9.7 gm/dL (12.0-15.0); MCH 26.3 pg (26.0-34.0); MCHC 31.1 g/dL (28.0-37.0); MCV 84.5 fL (80.0-100.0); RBC 3.67 mil/uL (4.20-5.00); RDW 18.9 % (10.5-14.5); WBC 11.5 thou/uL (4.0-11.0)
[2020-06-01 05:41] LABS: ALBUMIN 1.3 g/dL (3.4-5.0); CALCIUM 8.5 mg/dL (8.5-10.1); CREATININE 1.8 mg/dL (0.6-1.0); PHOSPHORUS 3.5 mg/dL (2.5-4.9); POTASSIUM 3.4 mmol/L (3.5-5.1)
--- NOTE | 2020-06-01 07:12 | NUR ---
PATIENT REMAINS ON THE VENT. AFIBRILE. VSS. DESATS WITH TURNS. KELYL IN PLACE WITH GOOD U/O. HYPOGLYCEMIC DURING MID-NIGHT BS CHECK. D50 GIVEN ORDERED. FAMILY UPDATED. WILL MONITOR
[2020-06-01 08:15] LABS: ALBUMIN 1.4 g/dL (3.4-5.0); DIRECT BILIRUBIN 0.1 mg/dL (<0.1-0.2); TOTAL BILIRUBIN 0.2 mg/dL (0.2-1.0)
--- NOTE | 2020-06-01 09:30 | NUR ---
TALKED WITH DR. RAMIREZ REGARDING PTS O2 SATUARTIONS RANGING FROM ANYWHERE FROM 82-85%, HR ST AROUND 120. DR. RAMIREZ IS AWARE. NO NEW ORDERS AT THIS TIME.
--- NOTE | 2020-06-01 09:59 | NUR ---
chart review, she cont to remain on vent with nutritional support. covid +. unable to visit with [facility] on P[facility]. noted nurse updated pt daughter yesterday via phone call. will cont following as needed for dc needs.
--- NOTE | 2020-06-01 10:00 | NUR ---
TALKED WITH AMERICAJerald PTS DAUGHTER. CONDITION REPORT GIVEN.
--- NOTE | 2020-06-01 10:27 | NUR ---
Increase tube feeding to 4 cartons vital high protein per day. Continue 1 packet beneprotein in ordered water flushes
--- NOTE | 2020-06-01 11:17 | NUR ---
Patients dtr will be arriving from [facility] this evening. [facility] coming from [facility] she is in [place]. Patients mother is currently a patient on [facility] COVID positive.
[2020-06-01 13:12] LABS: BE(vivo) -8.5 mmol/L (-2 to +3); HCO3 20.9 mmol/L (22.0-26.0); PCO2 62.8 mmHg (35.0-45.0); PO2 71.3 mmHg (80.0-100.0); sO2 88.6 % (92.0-98.0)
--- NOTE | 2020-06-01 16:29 | NUR ---
DR. GOFF NOTIFIED OF PTS POSITIVE BLOOD CULTURES IN PERSON
[2020-06-01 18:13] LABS: BE(vivo) -8.1 mmol/L (-2 to +3); HCO3 21.4 mmol/L (22.0-26.0); PCO2 63.7 mmHg (35.0-45.0); sO2 91.1 % (92.0-98.0)
[2020-06-01 18:14] LABS: pH 7.144 (7.360-7.450)
--- NOTE | 2020-06-01 19:24 | NUR ---
PT CHANGED TO APRV MODE. PT HAS CRITICAL ABG'S THROUGHOUT THE SHIFT. DR. RAMIREZ AWARE. BICARB GIVEN. LEVO GTT RESTARTED DUE TO HYPOTENSION. OKAY FOR PTS DAUGHTER FROM THE TO COME SEE PT TOMORROW 06/02 TO LOOK AT HER THROUGH THE DOOR. ONLY PTS DAUGHTER FROM THE IS TO VISIT.
[2020-06-01 22:32] LABS: BE(vivo) -6.1 mmol/L (-2 to +3); HCO3 24.6 mmol/L (22.0-26.0); PO2 75.1 mmHg (80.0-100.0); sO2 89.1 % (92.0-98.0)
[2020-06-01 22:33] LABS: PCO2 78.3 mmHg (35.0-45.0); pH 7.115 (7.360-7.450)
[2020-06-02] VITALS (10 sets, daily range): BP systolic 99–128; BP diastolic 16–88
[2020-06-02 05:10] LABS: HEMATOCRIT 33.4 % (37.0-47.0); HEMOGLOBIN 10.3 gm/dL (12.0-15.0); MCH 26.4 pg (26.0-34.0); MCHC 30.8 g/dL (28.0-37.0); MCV 85.7 fL (80.0-100.0); PLATELET COUNT 248 thou/uL (150-400); RDW 18.5 % (10.5-14.5); WBC 20.3 thou/uL (4.0-11.0)
[2020-06-02 05:16] LABS: PROTIME 9.7 Seconds (9.3-11.4)
[2020-06-02 05:21] LABS: FIBRINOGEN 503.4 mg/dL (210-360)
[2020-06-02 05:29] LABS: ALBUMIN 1.4 g/dL (3.4-5.0); CALCIUM 8.4 mg/dL (8.5-10.1); DIRECT BILIRUBIN < 0.1 mg/dL (<0.1-0.2); PHOSPHORUS 7.2 mg/dL (2.5-4.9); POTASSIUM 4.2 mmol/L (3.5-5.1); SGOT 99 U/L (15-37); SGPT 56 U/L (30-65); TOTAL BILIRUBIN 0.3 mg/dL (0.2-1.0)
[2020-06-02 05:32] LABS: CREATININE 2.8 mg/dL (0.6-1.0)
[2020-06-02 07:27] LABS: ABSOLUTE NEUTROPHILS 17.5 thou/uL (1.4-8.2); ANISOCYTOSIS 1+; PLATELET ESTIMATE NORMAL
--- NOTE | 2020-06-02 08:08 | NUR ---
REPORT RECIEVED. PATIENT REMAINS ON THE VENT. ON PROPOFOL, FENTANYL, VERSED GTT FOR SEDATION. AT APPROX 0520 PATIENT DESATS TO LOW 80S. RT AT THE BEDSIDE. PATIENT SLIME DOWN TO 40S WITH NO PULSE. CODE BLUE ACTIVATED. ER DOCTOR AT THE BEDSIDE. DR RAMIREZ NOTIFIED. ATTEMPTED TO NOTIFY FAMILY BUT PHONE WAS NOT ANSWERED MULTIPLE PHONE MESSAGES LEFT. FAMILY CALLED BACK AT APPROX 0610 AND WERE UPDATED. PATIENT AT APPROX 0602. [facility] CALLED.
== END 2020-06-02 13:55 | DRG 207 ==
LOC: ER 13:19 → EROBS 17:21 → ICU 17:21
PROVIDERS: Hospitalist; Internal Medicine; Internal Medicine Pulmonary Disease; Nurse Practitioner; Pediatrics; Specialist; ADMIT Internal Medicine; ATTEND Internal Medicine
PROC: 0BH17EZ Insertion of Endotracheal Airway into Trachea, Via Natural or Artificial Opening (ICD-10-PCS; principal; 2020-05-25)
PROC: 02HV33Z Insertion of Infusion Device into Superior Vena Cava, Percutaneous Approach (ICD-10-PCS; principal; 2020-05-25)
PROC: 5A1955Z Respiratory Ventilation, Greater than 96 Consecutive Hours (ICD-10-PCS; principal; 2020-05-25)
PROC: XW13325 Transfusion of Convalescent Plasma (Nonautologous) into Peripheral Vein, Percutaneous Approach, New Technology Group 5 (ICD-10-PCS; 2020-05-27)
PROC: XW033E5 Introduction of Remdesivir Anti-infective into Peripheral Vein, Percutaneous Approach, New Technology Group 5 (ICD-10-PCS; 2020-05-27)
DX: U07.1 COVID-19 (principal); E11.10 Type 2 diabetes mellitus with ketoacidosis without coma; G93.41 Metabolic encephalopathy; J96.01 Acute respiratory failure with hypoxia; J12.89 Other viral pneumonia; E87.1 Hypo-osmolality and hyponatremia; N17.9 Acute kidney failure, unspecified; E87.0 Hyperosmolality and hypernatremia; E46 Unspecified protein-calorie malnutrition; Z68.43 Body mass index [BMI] 50.0-59.9, adult; E78.00 Pure hypercholesterolemia, unspecified; E87.5 Hyperkalemia; E83.39 Other disorders of phosphorus metabolism; G25.81 Restless legs syndrome; E87.8 Other disorders of electrolyte and fluid balance, not elsewhere classified; D64.9 Anemia, unspecified; E66.9 Obesity, unspecified; Z88.8 Allergy status to other drugs, medicaments and biological substances; Z87.891 Personal history of nicotine dependence
CPT/HCPCS: 10078; 85076